=== PATIENT | male | born 1945 | race Caucasian/White ===

== ENCOUNTER 2020-12-22 21:45 | Observation (INO) ==
[2020-12-22] MEDS ORDERED: FUROSEMIDE 40 MG/4 ML VIAL IV STA (22:12)
[2020-12-22 22:32] LABS: Basophils % 0.3 % (0.0-0.8); Eosinophils # 0.3 10*3/uL (0.0-0.87); Hematocrit 39.3 VOL% (42.0-52.0); Immature Granulocytes % 0.4 %; Immature Granulocytes Absolute 0.03 #; Lymphocytes # 1.8 10*3/uL (1.4-4.0); Lymphocytes % 26.1 % (21.2-54.2); Mean Corpuscular HGB Conc 33.1 GM/DL (32-36); Mean Corpuscular Volume 87.5 FL (87-102); Mean Platelet Volume 8.5 FL (9.6-12.0); Monocytes % 9.7 % (1.7-12.7); Neutrophils % 58.5 % (38.7-73.9); Platelet Count 178 T/CUMM (130-400); Red Blood Count 4.49 MC/CUMM (3.8-5.5); Red Cell Distribution Width 13.6 % (9.3-17.3); White Blood Count 6.8 T/CUMM (4-12)
[2020-12-22 22:43] LABS: PT Patient Result 10.6 SECS (9.8-11.9)
[2020-12-22 22:50] LABS: Albumin 3.3 G/DL (3.4-5.0); Bilirubin,Total 0.7 MG/DL (0.2-1.0); Calcium 8.2 MG/DL (8.5-10.1); Osmolality,Calculated 282.4 MOS/KG (273-304); Potassium 3.7 MMOL/L (3.5-5.1); Total Protein 6.4 G/DL (6.4-8.2)
[2020-12-22] MEDS ORDERED: ENOXAPARIN 120 MG/0.8 ML SYRINGE SUBCUT STA (23:15)
[2020-12-23] MEDS ORDERED: guaiFENesin/DM ER 600-30 MG TABLET PO PRN (00:02)
[2020-12-23] MEDS ORDERED: hydrALAZINE 20 MG/1 ML VIAL IV PRN (00:02)
[2020-12-23] MEDS ORDERED: ONDANSETRON 4 MG/2 ML VIAL IV PRN (00:02)
[2020-12-23] MEDS ORDERED: DEXTROSE 50% 25 GM/50 ML VIAL IV PRN (00:02)
[2020-12-23] MEDS ORDERED: ZALEPLON 5 MG CAPSULE PO PRN (00:02)
[2020-12-23] MEDS ORDERED: NICOTINE 21 MG/24 HR PATCH TRANSDERM PRN (00:02)
[2020-12-23] MEDS ORDERED: diphenhydrAMINE CAP 25 MG CAPSULE PO PRN (00:02)
[2020-12-23] MEDS ORDERED: ACETAMINOPHEN 325 MG TABLET PO PRN (00:02)
[2020-12-23] MEDS ORDERED: GLUCAGON 1 MG VIAL IM PRN (00:02)
[2020-12-23 05:04] LABS: Basophils % 0.3 % (0.0-0.8); Eosinophils # 0.4 10*3/uL (0.0-0.87); Eosinophils % 6.3 % (0.00-10.9); Hemoglobin 13.5 GM/DL (14.0-18.0); Immature Granulocytes Absolute 0.06 #; Lymphocytes # 1.6 10*3/uL (1.4-4.0); Lymphocytes % 27.2 % (21.2-54.2); Mean Corpuscular HGB Conc 33.8 GM/DL (32-36); Mean Corpuscular Volume 86.6 FL (87-102); Mean Platelet Volume 8.7 FL (9.6-12.0); Monocytes % 13.4 % (1.7-12.7); Neutrophils % 51.8 % (38.7-73.9); Platelet Count 179 T/CUMM (130-400); Red Blood Count 4.62 MC/CUMM (3.8-5.5); Red Cell Distribution Width 13.7 % (9.3-17.3)
[2020-12-23 05:37] LABS: Calcium 8.6 MG/DL (8.5-10.1); Osmolality,Calculated 278.5 MOS/KG (273-304); Potassium 3.8 MMOL/L (3.5-5.1)
[2020-12-23] MEDS ORDERED: PANTOPRAZOLE 40 MG TABLET PO SCH (09:00)
[2020-12-23] MEDS ORDERED: ENOXAPARIN 120 MG/0.8 ML SYRINGE SUBCUT SCH (09:00)
[2020-12-23 12:15] VITALS: BP 134/70
[2020-12-23] MEDS ORDERED: APIXABAN 5 MG TABLET PO SCH (13:00)
[2020-12-23] MEDS ORDERED: RIVAROXABAN 15 MG TABLET PO SCH (17:00)
== END 2020-12-23 16:00 | disposition home or self-care (01) ==
LOC: N.EDINP 21:45 → N.ED 21:45 → N.TELEN 12-23 02:01
PROVIDERS: ADMIT Internal Medicine Geriatric Medicine; ATTEND Internal Medicine Geriatric Medicine